=== PATIENT | female | born 1990 | race Caucasian/White ===

== ENCOUNTER 2016-09-01 13:04 | Emergency (ER) ==
[2016-09-01 13:13] VITALS: BP 136/89
[2016-09-01] MEDS ORDERED: BENADRYL IM ONE (14:21)
[2016-09-01] MEDS ORDERED: DECADRON IM ONE (14:21)
--- NOTE | 2016-09-01 14:22 | PROVIDER DOCUMENTATION ---
HPI-Rash/Wound/ReCheck - General Chief Complaint: Rash Stated Complaint: RASH Time Seen by Provider: 09/01/16 13:29 Source: patient Allergies/Adverse Reactions: Allergies Allergy/AdvReac Type Severity Reaction Status Date / Time NSAIDS (Non-Steroidal Allergy Severe ANAPHYLAXIS Verified 09/01/16 13:42 Anti-Inflamma Home Medications: Home Medication List Medication Instructions Recorded Confirmed Last Taken Type Doxycycline 100 mg PO BID #20 capsule 09/01/16 Unknown Rx Famotidine [Pepcid] 20 mg PO DAILY #20 tablet 09/01/16 Unknown Rx Hydroxyzine [Atarax] 25 mg PO TID #20 tablet 09/01/16 Unknown Rx - History of Present Illness-Dermatology Nature of Presenting Problem: 26 y/o WF c/o rash x 4 days. Pt states that she noted the rash moving from her R knee to L knee, then to her bilat hands. States itchy in nature. Pt denies any new lotion, soap, pets, sexual partners, tick bites recently. Review of Systems - Adult - REVIEW OF SYSTEMS - ADULT Constitutional: reports: no symptoms reported. denies: chills, fever Eyes: reports: no symptoms reported. denies: blurred vision, double vision Ears, Nose, Mouth & Throat: reports: no symptoms reported. denies: ear pain, nose pain Cardiovascular: reports: no symptoms reported. denies: chest pain, palpitations Respiratory: reports: no symptoms reported. denies: dyspnea on exertion, shortness of breath Gastrointestinal: reports: no symptoms reported. denies: nausea, vomiting Genitourinary: reports: no symptoms reported. denies: dysuria, frequency Musculoskeletal: reports: no symptoms reported. denies: joint pain, joint swelling Integumentary: reports: see HPI, itching, rash. denies: mole changes, nail changes Neurological: reports: no symptoms reported. denies: numbness, paresthesia Psychiatric: reports: no symptoms reported Endocrine: reports: no symptoms reported. denies: cold intolerance, heat intolerance Hematologic/Lymphatic: reports: no symptoms reported. denies: easy bruising, prolonged bleeding Allergic/Immunologic: reports: no symptoms reported All Other Systems: Reviewed and Negative Past History - Adult - PAST MEDICAL HISTORY-ADULT Review of Records: reports: Nursing Assessment Review, Medications Reviewed Major Childhood Illnesses: reports: denies history Cardiovascular: reports: denies history Respiratory: reports: denies history Gastrointestinal: reports: denies history Obstetrical/Gynecological: reports: denies history Genitourinary: reports: denies history Musculoskeletal: reports: denies history Neurological: reports: denies history Endocrine/Immune: reports: denies history Other Conditions: reports: denies history - IMMUNIZATION STATUS Childhood Immunizations: See Nurse Assessment Flu Vaccine: See Nurse Assessment - SOCIAL HISTORY Smoking: denies Physical Exam-General - PHYSICAL EXAM-ADULT Initial Vital Signs Reviewed: Yes - CONSTITUTIONAL General Appearance: alert, mild distress, obese - EYES Eyes: pink conjunctivae - HEAD, EARS, NOSE, MOUTH & THROAT HENMT: normocephalic/atraumatic - NECK Neck: normal inspection - RESPIRATORY Respiratory: no respiratory distress - CARDIOVASCULAR Cardiovascular: normal peripheral pulses, regular rate, rhythm - MUSCULOSKELETAL Back Exam: normal inspection Extremity: normal gait. negative: abnormal NV exam Peripheral Pulses: radial (R): 2+, radial (L): 2+ - SKIN Integumentary: normal color, normal turgor, warm/dry, rash (rash noted to bilat knees at anterior aspect and bilat hands at palmar aspect that alex; erythemetous and coalescing red small papules.) - NEUROLOGIC Neurologic: negative: aphasia - PSYCHIATRIC Psych/Mental Status: normal mood/affect, normal thought content, normal thought process, oriented x 3 Departure - Departure Time of Disposition Order: 14:17 DIAGNOSIS: Allergic contact dermatitis Qualifiers: Contact dermatitis trigger: unspecified trigger Qualified Code(s): L23.9 - Allergic contact dermatitis, unspecified cause Disposition: HOME 01 Certified Medical Emergency: Emergent Condition: Stable Additional Instructions: Take medications as directed. Follow up with PCP in 2-3 days for recheck or with specialist. ED Follow Up Instructions: You have been treated by a care provider in the Emergency Department. These instructions are being provided to you so you can have an understanding of how to care for yourself upon discharge. Upon discharge from the Emergency Department, you are responsible for making arrangements for follow-up care by a physician of your choice. Take all prescribed medications as directed. Return to the Emergency Department immediately for any new or worsening symptoms. You may call the Physician Referral phone number at [phone] to obtain a list of Physicians who are taking new patients. Prescriptions: Doxycycline 100 mg PO BID #20 capsule Hydroxyzine [Atarax] 25 mg PO TID #20 tablet Famotidine [Pepcid] 20 mg PO DAILY #20 tablet Referrals: None,PCP [Primary Care Provider] - Zaki Austin MD [STAFF PHYSICIAN] - Ceci Gill MD [STAFF PHYSICIAN] - Attestation - Physician/ ALICIA Attestation Patient care was provided by Advanced Practice Provider:: Yes Advanced Practice Provider:: Hilary Easton Advanced Practice Provider documentation review:: The Mid-level provider documentation, treatment plan and medical decision making was reviewed by the physician who agrees with all treatment and medical decision making by the MLP.
== END 2016-09-01 14:42 | disposition home or self-care (01) ==
LOC: ED 13:04
DX: L23.9 Allergic contact dermatitis, unspecified cause (principal); R21 Rash and other nonspecific skin eruption; L29.9 Pruritus, unspecified; E66.9 Obesity, unspecified
CPT/HCPCS: J1200